=== PATIENT | male | born 1965 | race Two or more races ===

== ENCOUNTER → 2021-07-23 | Outpatient (CLI) | payer OTHER ==
[~2021-07-23] MED LIST: CRUTCH2 USE; HYDACE5 PO; LORA1 PO; Percocet 5-3251 EACH PO
[2021-07-24 10:15] LABS: Stool Occult Bld Immuno 1 Positive (NEGATIVE)
== END | disposition home or self-care (01) ==
LOC: LAB 11:15 → LAB SHORT 11:15
PROVIDERS: Registered Nurse
DX: Z12.11 Encounter for screening for malignant neoplasm of colon (principal)
CPT/HCPCS: G0328

== ENCOUNTER 2022-11-19 09:34 | Day surgery (SDC) | payer OTHER ==
[~2022-11-19] VITALS: Ht 177.8 cm; Wt 79.9 kg
--- NOTE | 2022-11-19 12:28 | NUR ---
11/19/22 122Cydney Green UNABLE TO PRINT VS FROM MONITOR. PATIENTS VS REMAINED STABLE THROUGHOUT THE PROCEDURE.
[2022-11-19 12:29] VITALS: BP 183/113
--- NOTE | 2022-11-19 12:32 | NUR ---
11/19/22 1232 Cydney Reeves LATE ENTRY IV DC'D AT 1150/WNL PT'S BP WAS ELEVATED PRIOR TO PROCEDURE, RN DISCUSSED WITH PT THE NEED TO TAKE HIS BP MEDS REGULARLY. PT VERBALIZES UNDERSTANING
== END 2022-11-19 12:00 | disposition home or self-care (01) ==
LOC: ORSCSDS 09:34
PROVIDERS: Internal Medicine Gastroenterology
PROC: 0DBL8ZX Excision of Transverse Colon, Via Natural or Artificial Opening Endoscopic, Diagnostic (ICD-10-PCS; principal; 2022-11-19 11:00)
PROC: 0DB78ZX Excision of Stomach, Pylorus, Via Natural or Artificial Opening Endoscopic, Diagnostic (ICD-10-PCS; principal; 2022-11-19 11:00)
DX: R19.5 Other fecal abnormalities (principal); D12.3 Benign neoplasm of transverse colon; K21.9 Gastro-esophageal reflux disease without esophagitis; K29.71 Gastritis, unspecified, with bleeding; R04.0 Epistaxis; K57.30 Diverticulosis of large intestine without perforation or abscess without bleeding; K64.8 Other hemorrhoids; F17.210 Nicotine dependence, cigarettes, uncomplicated; I10 Essential (primary) hypertension
CPT/HCPCS: 88305; 88342; J2250; J2704; J7120